=== PATIENT | female | born 1985 ===

== ENCOUNTER 2017-07-01 16:38 | Emergency (ER) | payer OTHER ==
[2017-07-01 17:22] VITALS: RESP 18; O2SAT 100
--- NOTE | 2017-07-01 17:57 | ED PDOC ---
HPI: Female Pain Time Seen by Provider: 07/01/17 16:58 Chief Complaint (Nursing): Female Genitourinary History Per: Patient (Pt is a 31 yo female with no PMhx presenting to ED with pelvic pain. She states that she was at a clinic in [place] where she was trying to have her IUD removed. They were unable to remove the IUD and advised her to go to the ED. She localizes her pain to her lower abdomen and describes it as sharp and throbbing, waxing and waning, non radiating and exacerbated by adduction of her legs and walking. On ROS, she mentions she has vaginal spotting that began after the attempted removal of the IUD in the clinic. She denies chest pain, SOB, fever, chills, n/v/d, urinary symptoms, or back pain. ) Past Medical History Reviewed: Historical Data, Nursing Documentation, Vital Signs Vital Signs: Last Vital Signs Temp 98.7 F 07/01/17 17:21 Pulse 81 07/01/17 17:21 Resp 18 07/01/17 17:21 BP 110/62 07/01/17 17:21 Pulse Ox 100 07/01/17 17:21 - Surgical History Surgical History: No Surg Hx - Family History Family History: States: No Known Family Hx - Living Arrangements Living Arrangements: With Family - Social History Current smoker - smoking cessation education provided: No Alcohol: None Drugs: Denies - Immunization History Hx Tetanus Toxoid Vaccination: No Hx Influenza Vaccination: No - Home Medications Home Medications: Ambulatory Orders Medication Instructions Recorded Clindamycin [Cleocin] 300 mg PO TID #21 cap 08/13/16 Ibuprofen [Motrin] 600 mg PO TID PRN #30 tab 08/13/16 - Allergies Allergies/Adverse Reactions: Allergies Allergy/AdvReac Type Severity Reaction Status Date / Time Penicillins Allergy RASH Verified 08/13/16 17:26 Review of Systems ROS Statement: Except As Marked, All Systems Reviewed And Found Negative Constitutional: Negative for: Fever, Chills, Weakness Cardiovascular: Negative for: Chest Pain, Palpitations Respiratory: Negative for: Cough, Shortness of Breath Gastrointestinal: Positive for: Abdominal Pain. Negative for: Nausea, Vomiting , Diarrhea, Constipation, Hematochezia, Hematemesis Genitourinary Female: Positive for: Vaginal Bleeding (Minimal spotting). Negative for: Dysuria, Frequency, Incontinence, Hematuria Skin: Negative for: Rash, Bruising Neurological: Negative for: Weakness, Numbness Physical Exam - Reviewed Nursing Documentation Reviewed: Yes Vital Signs Reviewed: Yes - Physical Exam Appears: Positive for: Well, No Acute Distress Cardiovascular/Chest: Positive for: Regular Rate, Rhythm Respiratory: Positive for: Normal Breath Sounds. Negative for: Crackles Pulses-Dorsalis Pedis (L): 2+ Pulses-Dorsalis Pedis (R): 2+ Pulses-Radial (L): 2+ Pulses-Radial (R): 2+ Gastrointestinal/Abdominal: Positive for: Bowel Sounds, Soft, Tenderness ( Tenderness to palpation in lower quadrants (more pronounced on the right)). Negative for: Organomegaly, Distended, Guarding, Rebound Pelvic Exam: Positive for: External Exam Normal, Blood (Scant blood), Tender Uterus, Other (IUD string visualized protruding from the cervical os; cervix is seen to be posteriorly displaced). Negative for: No Cerv. Motion Tender, No Masses, Active Bleeding, Discharge, Lesions, Mass, Tender W/Cervical Motion, Ulcers Back: Negative for: L CVA Tenderness Neurologic/Psych: Positive for: Alert, Oriented - ECG O2 Sat by Pulse Oximetry: 100 Medical Decision Making Medical Decision Makin yo female with no PMHx presents to ED with intermittent pelvic pain after multiple failed attempts to remove IUD in the outpatient clinic. Pt was sent here to have IUD removed. ED course: Torodol 15mg IM U/A Vaginal Cx Transvaginal U/S Disposition - Clinical Impression Clinical Impression: Encounter for removal of intrauterine contraceptive device (IUD), Pelvic pain - Disposition Disposition Time: 18:46 Condition: STABLE Forms: [employer] ([place])
[2017-07-01 18:11] LABS: RBC URINE 1 /hpf (0-3); URINE BACTERIA RARE (<OCC); URINE BILIRUBIN NEGATIVE (NEGATIVE); URINE BLOOD LARGE (NEGATIVE); URINE COLOR STRAW (YELLOW); URINE GLUCOSE (UA) NEG (Normal); URINE KETONE NEGATIVE (NEGATIVE); URINE LEUKOCYTE ESTERASE NEG Leu/uL (Negative); URINE PROTEIN NEGATIVE (NEGATIVE); URINE UROBILINOGEN 0.2-1.0 mg/dL (0.2-1.0); WBC URINE < 1 /hpf (0-5)
[2017-07-01 21:50] VITALS: BP 116/72; PULSE 75; TEMP 98.4
--- NOTE | 2017-07-01 22:08 | CP.PCM.CON ---
<Gorge Arenas - Last Filed: 07/01/17 22:00> History of Present Illness - History of Present Illness History of Present Illness: 31 yo F with no significant pmhx presents to the ED for IUD removal. Earlier today, she was seen by her BILLET INSPECTOR ( Dr. Linares at [facility]) to have the IUD removed, however, it was entrapped within the uterus. IUD was placed in 08/2012. She denies vaginal bleed, N, V, chest pain, SOB. LMP: 05/2016 POBhx: 2004 38 wk vaginal delivery F; 2006 40 wk vaginal delivery F; 2010 spontaneous at 4 wk Gyne: neg hx for STI; pap: January 2016 Med Hx: none Surgical hx: none Soc: Denies: smoking, alcohol, illicit drugs Rx: no medications Allergies; nkda Review of Systems - Constitutional Constitutional: As Per HPI - Cardiovascular Cardiovascular: As Per HPI - Respiratory Respiratory: As Per HPI - Reproductive: Female Reproductive:Female: As Per HPI. absent: Abnormal Vaginal Bleeding (AAOX3; Denies: chest pain, sob, n, v, vaginal bleed), Vaginal Discharge Past Patient History - Past Social History Alcohol: None Drugs: Denies - PSYCHIATRIC Hx Substance Use: No - SURGICAL HISTORY Other/Comment: has IUD Meds Home Medications: Home Medication List Medication Instructions Recorded Confirmed Type Ibuprofen [Motrin Tab] 600 mg PO Q8 PRN #60 tab 07/01/17 Rx Allergies/Adverse Reactions: Allergies Allergy/AdvReac Type Severity Reaction Status Date / Time Penicillins Allergy RASH Verified 08/13/16 17:26 Physical Exam - Constitutional Appears: Well, No Acute Distress - Eye Exam Eye Exam: EOMI, Normal appearance, PERRL - Cardiovascular Exam Cardiovascular Exam: REGULAR RHYTHM, +S1, +S2 - GI/Abdominal Exam GI & Abdominal Exam: Normal Bowel Sounds, Soft - Exam External exam: NORMAL EXTERNAL EXAM Speculum exam: NORMAL SPECULUM EXAM (Speculum exam: thread from IUD seen in vaginal cavity) - Back Exam Back exam: NORMAL INSPECTION. absent: CVA tenderness (L), CVA tenderness (R) - Neurological Exam Neurological exam: Normal Gait, Oriented x3 - Psychiatric Exam Psychiatric exam: Normal Affect, Normal Mood - Skin Skin Exam: Dry, Intact, Normal Color, Warm Results - Vital Signs Recent Vital Signs: Last Vital Signs Temp 98.4 F 07/01/17 21:49 Pulse 75 07/01/17 21:49 Resp 18 07/01/17 21:49 BP 116/72 07/01/17 21:49 Pulse Ox 100 07/01/17 21:49 - Labs Labs: Laboratory Results - last 24 hr 07/01/17 17:25 Urine Color Straw Urine Clarity Clear Urine pH 6.0 Ur Specific [place] 1.005 Urine Protein Negative Urine Glucose (UA) Neg Urine Ketones Negative Urine Blood Large Urine Nitrate Negative Urine Bilirubin Negative Urine Urobilinogen 0.2-1.0 Ur Leukocyte Esterase Neg Urine RBC (Auto) 1 Urine Microscopic WBC < 1 Ur Squamous Epith Cells 3 Urine Bacteria Rare Assessment & Plan - Assessment and Plan (Free Text) Assessment: A: Sterile Speculum exam: thread from IUD seen passing through cervix into the vaginal cavity. Used sterile forceps to extract IUD, however, partial removal. One of the lateral T structures is believed to still be inside her uterus. 2 cc of cervical bleed, blot with sterile gauze P: 31 yo f presents to the ED for IUD removal. Partial IUD removal. Will make an appointment Dr. Maldonado in the AM with [facility] for hysteroscope in order to extract a portion of IUD believed to be within the uterine cavity. Pt contact information: Cellular: [phone]; sister: [phone] Instructed patient that we will contact her with an appropriate appointment. Shared with her that due to the procedure, she may experience slight vaginal bleed. If she experiences heavy bright red blood per vagina, feels weak or lightheaded, she should return to the ED for further evaluation. Deepa, PGY1 <Kush Dean S - Last Filed: 07/02/17 09:04> History of Present Illness - History of Present Illness History of Present Illness: OB hospitalist addendum: Above patient seen and examined by me with Dr. Arenas. Physical Exam - Respiratory Exam Respiratory Exam: NORMAL BREATHING PATTERN - GI/Abdominal Exam GI & Abdominal Exam: absent: Distended, Guarding, Rebound (4cm of IUD string visualized to be extruding from cervical os) Results - Vital Signs Recent Vital Signs: Last Vital Signs Temp 98.4 F 07/01/17 21:49 Pulse 75 07/01/17 21:49 Resp 18 07/01/17 21:49 BP 116/72 07/01/17 21:49 Pulse Ox 100 07/01/17 21:49 - Labs Labs: Laboratory Results - last 24 hr 07/01/17 17:25 Urine Color Straw Urine Clarity Clear Urine pH 6.0 Ur Specific [place] 1.005 Urine Protein Negative Urine Glucose (UA) Neg Urine Ketones Negative Urine Blood Large Urine Nitrate Negative Urine Bilirubin Negative Urine Urobilinogen 0.2-1.0 Ur Leukocyte Esterase Neg Urine RBC (Auto) 1 Urine Microscopic WBC < 1 Ur Squamous Epith Cells 3 Urine Bacteria Rare Assessment & Plan - Assessment and Plan (Free Text) Assessment: Impression: Malpositioned IUD Plan: Under sterile conditions the IUD string was grasped with a ring forceps and the IUD was removed. Examination the IUD showed the absence of one of the IUD arms. The external os of the cervical canal was examined with the ring forceps and the missing IUD arm was not visualized.
--- NOTE | 2017-07-02 10:01 | US ---
HISTORY: LEFT pelvic pain IUD COMPARISON: None available. TECHNIQUE: Transvaginal sonographic evaluation of the pelvis performed. FINDINGS: UTERUS: Measures approximately 9.1 x 3.3 x 5.6 cm. Normal in size and appearance. No fibroid or other mass lesion seen. ENDOMETRIUM: Measures approximately 1.2 mm in diameter. In situ IUD which appears to be located in the endometrial canal at the level of the lower uterine segment CERVIX: . Small nabothian cysts present RIGHT OVARY: Measures approximately 4.5 x 1.6 x 3.3 cm. No solid mass. Normal flow. LEFT OVARY: Measures approximately 3.3 x 2.1 x 2.7 cm. No solid mass. Normal flow. FREE FLUID: No significant free fluid noted. OTHER FINDINGS: None. IMPRESSION: In situ IUD located endometrial canal at the level of the lower uterine segment
== END 2017-07-01 21:50 | disposition home or self-care (01) ==
LOC: H.ER 16:38
DX: B37.3 Candidiasis of vulva and vagina (principal); Z30.432 Encounter for removal of intrauterine contraceptive device; Z88.0 Allergy status to penicillin
CPT/HCPCS: 76830; 81003; 81025; 87070; 96372; 99284; J1885